=== PATIENT | female | born 2000 | race Caucasian/White ===

== ENCOUNTER 2022-08-04 17:46 | Emergency (ER) | payer MEDICAID ==
[~2022-08-04] VITALS: Ht 160 cm; Wt 66.0 kg
[2022-08-04 18:29] VITALS: BP 108/72
[2022-08-04] MEDS ORDERED: IBUP-2028 MT (20:23)
[2022-08-04] MEDS ORDERED: AMOX-494 MT (20:24)
== END 2022-08-04 20:57 | disposition home or self-care (01) ==
LOC: ER 17:46
DX: H66.91 Otitis media, unspecified, right ear (principal)
CPT/HCPCS: 99281